=== PATIENT | female | born 1980 | race Two or more races ===

== ENCOUNTER 2017-09-09 19:11 | Emergency (ER) | payer OTHER ==
[~2017-09-09] VITALS: Ht 170.2 cm; Wt 59.0 kg
[~2017-09-09 19:11] MED LIST: KETO10TA2 PO
[2017-09-10] MEDS ORDERED: KETO10TA2 PO (02:35)
== END 2017-09-10 02:31 | disposition home or self-care (01) ==
LOC: ER 19:11
DX: N83.292 Other ovarian cyst, left side (principal); D25.9 Leiomyoma of uterus, unspecified

== ENCOUNTER 2019-10-02 16:54 | Emergency (ER) | payer OTHER ==
[~2019-10-02] VITALS: Ht 165.1 cm; Wt 68.0 kg
== END 2019-10-02 21:41 | disposition home or self-care (01) ==
LOC: ER 16:54
DX: J11.1 Influenza due to unidentified influenza virus with other respiratory manifestations (principal); B96.0 Mycoplasma pneumoniae [M. pneumoniae] as the cause of diseases classified elsewhere

== ENCOUNTER 2021-02-13 10:43 | Emergency (ER) | payer OTHER ==
[~2021-02-13] VITALS: Ht 165.1 cm; Wt 64.9 kg
[2021-02-13] MEDS ORDERED: BUTALB-ACETAMI1 EACH PO (13:40)
== END 2021-02-13 13:53 | disposition home or self-care (01) ==
LOC: ER 10:43
DX: G43.909 Migraine, unspecified, not intractable, without status migrainosus (principal)

== ENCOUNTER 2025-01-15 07:22 | Inpatient (IN) | payer OTHER ==
[~2025-01-15] VITALS: Ht 167.6 cm; Wt 69.4 kg
[~2025-01-15 07:22] MED LIST changes: +BUTALB-ACETAMI1 EACH PO
--- NOTE | 2025-01-15 07:35 | NUR ---
PACIENTE SE PRESENTA A ER CON QUEJA PRINCIPAL DE DOLOR EN REGION LUMBAR BAJA QUE IRRADIA HACIA LA PIERNA DERECHA DESDE HACE APROX 3 MARTINEZ. REFIERE QUE EL DOLOR VIVAR SIDO PERSISTENTE, NO VIVAR FILIPE A PESAR DE MICHELLE ANALGESICOS. REFIERE ADEMAS, QUE DESDE HOY VIVAR COMENZADO A EXPERIMENTAR MOLESTIA AL ORINAS. NIEGA FIEBRE, TRAUMA RECIENTE O CAIDAS.
--- NOTE | 2025-01-15 09:27 | NUR ---
SE EJECUTA ORDEN MEDICA EN LR TOTALIDAD
[2025-01-15 09:45] LABS: BASO % 1.5 % (0.1-1.2); EOS # 0.12 (0.04-0.54); LYMPH # 1.16 (1.18-3.74); LYMPH % 19.5 % (19.3-53.1); MEAN CORPUSCULAR HEMOGLOBIN 15.7 pg (25.6-32.2); MONO # 0.37 (0.24-0.82); MONO % 6.2 % (4.7-12.5); NEUT # 4.21 (1.56-6.13); NEUT % 70.6 % (34.0-71.1); PLATELET COUNT 384 K/uL (163-369); RED BLOOD COUNT 4.26 M/uL (3.93-5.22)
[2025-01-15 09:48] LABS: HEMATOCRIT 25.3 % (34.1-44.9); HEMOGLOBIN 6.7 g/dL (11.2-15.7)
[2025-01-15 10:08] LABS: PH,URINE 5.5 (5.0-8.0); URINE APPEARANCE Cloudy; URINE BILIRRUBIN Negative (NEGATIVE); URINE BLOOD Negative; URINE COLOR Yellow; URINE GLUCOSE Negative (NEGATIVE); URINE KETONE Trace (NEGATIVE); URINE LEUKOCYTE Moderate; URINE NITRATE Positive; URINE PROTEIN Negative (NEGATIVE)
[2025-01-15 10:11] LABS: URINE EPITHELIAL CELLS 115.7 uL (0.0-38.8); URINE RBC 4.5 uL (0.0-20.8); URINE WBC 267.4 uL (0.0-23.2)
[2025-01-15 10:18] LABS: ALBUMIN 4.4 gm/dL (3.4-5.0); BILIRUBIN TOTAL 1.26 mg/dL (0.3-1.2); CALCIUM 9.1 mg/dL (8.5-10.1); CREATININE SERUM 0.67 mg/dL (0.55-1.02); GFR 95.61; GLOBULINA 3.3 G/DL (2.4-3.5); POTASSIUM 5.21 mEq/L (3.5-5.1); TOTAL PROTEIN 7.7 gm/dL (6.4-8.2)
[2025-01-15 12:09] LABS: URINE CAST 0.14 uL (0.0-1.40)
[2025-01-15] MEDS ORDERED: ESTROGENS, CONJUGATED 25 MG VIAL IM ONE (16:45)
--- NOTE | 2025-01-15 18:30 | NUR ---
SE CORROBORA CON ORDEN DE PREMARIN 25MG, EL MISMO INDICA ESPERAR PARA LA ADMINISTRACION DEL MISMO DEBIDO QUE CONSULTARA A PACIENTE Y ANADIRA MAS ORDENES. AL MOMENTO DE SER ADMITIDO EL PACIENTE INDICA QUE NO VE NECESARIA LA ADMINISTRACION DE DICHO MEDICAMENTO POR LO CUAL SE PROCEDE A CANCELAR ORDEN MEDICA.
[2025-01-15] MEDS ORDERED: CEFTRIAXONE SODIUM 1,000 MG VIAL IV SCH (19:10)
[2025-01-15] MEDS ORDERED: 0.9 % SODIUM CHLORIDE 1,000 ML IV SCH (19:15)
[2025-01-15] MEDS ORDERED: ACETAMINOPHEN 325 MG TABLET PO PRN (19:15)
[2025-01-15] MEDS ORDERED: MORPHINE SULFATE 2 MG/ML CARTRIDGE IV PRN (19:30)
[2025-01-15] MEDS ORDERED: CEFTRIAXONE SODIUM 2,000 MG VIAL ONE (21:43)
[2025-01-15 22:43] LABS: INR 1.04; PARTIAL THROMBOPLASTIN TIME 23.7 SECONDS (22.0-34.0); PROTHROMBIN TIME 11.3 SECONDS (9.0-11.5)
[2025-01-15 22:48] LABS: ALBUMIN 4.5 gm/dL (3.4-5.0); BILIRUBIN TOTAL 1.23 mg/dL (0.3-1.2); CALCIUM 8.9 mg/dL (8.5-10.1); CREATININE SERUM 0.65 mg/dL (0.55-1.02); GFR 99.02; GLOBULINA 3.6 G/DL (2.4-3.5); POTASSIUM 3.98 mEq/L (3.5-5.1); TOTAL PROTEIN 8.1 gm/dL (6.4-8.2)
[2025-01-15 23:27] VITALS: BP 100/59; O2SAT 97
[2025-01-16 02:24] VITALS: BP 96/61; O2SAT 99
[2025-01-16 08:23] VITALS: BP 90/57; O2SAT 98
[2025-01-16] MEDS ORDERED: FF) NORGESTREL-ETHINYL ESTRADIOL TAB PO SCH (12:58)
[2025-01-16 16:06] VITALS: BP 97/55
[2025-01-16] MEDS ORDERED: CEFTRIAXONE SODIUM 2,000 MG VIAL IV SCH (17:00)
[2025-01-17 01:10] VITALS: BP 102/70; O2SAT 97
[2025-01-17 07:50] VITALS: BP 113/75
[2025-01-17 11:12] LABS: EOS # 0.43 (0.04-0.54); EOS % 6.3 % (0.7-7.0); HEMATOCRIT 36.1 % (34.1-44.9); HEMOGLOBIN 10.7 g/dL (11.2-15.7); LYMPH # 1.26 (1.18-3.74); LYMPH % 18.4 % (19.3-53.1); MEAN CORPUSCULAR HEMOGLOBIN 20.3 pg (25.6-32.2); MONO # 0.45 (0.24-0.82); MONO % 6.6 % (4.7-12.5); NEUT # 4.63 (1.56-6.13); NEUT % 67.4 % (34.0-71.1); PLATELET COUNT 287 K/uL (163-369); RED BLOOD COUNT 5.28 M/uL (3.93-5.22)
[2025-01-17 11:15] LABS: RED CELL DISTRIBUTION WIDTH 27.6 % (11.6-14.4)
[2025-01-17] MEDS ORDERED: LACTOBACILLUS ACIDOPHILUS 1 CAP CAP PO SCH (17:00)
[2025-01-17 17:55] LABS: ALBUMIN 3.9 gm/dL (3.4-5.0); BILIRUBIN TOTAL 1.92 mg/dL (0.3-1.2); CALCIUM 8.8 mg/dL (8.5-10.1); CREATININE SERUM 0.55 mg/dL (0.55-1.02); GFR 120.07; GLOBULINA 3.2 G/DL (2.4-3.5); POTASSIUM 4.35 mEq/L (3.5-5.1); TOTAL PROTEIN 7.1 gm/dL (6.4-8.2)
[2025-01-18 00:31] VITALS: BP 107/66
[2025-01-18 04:59] LABS: HEMATOCRIT 34.2 % (34.1-44.9); HEMOGLOBIN 10.2 g/dL (11.2-15.7); RED BLOOD COUNT 5.06 M/uL (3.93-5.22)
[2025-01-18 05:00] LABS: LYMPH % 22.4 % (19.3-53.1); MEAN CORPUSCULAR HEMOGLOBIN 20.2 pg (25.6-32.2); MONO % 7.7 % (4.7-12.5); NEUT % 60.4 % (34.0-71.1); PLATELET COUNT 287 K/uL (163-369); RED CELL DISTRIBUTION WIDTH 28.1 % (11.6-14.4)
[2025-01-18 05:01] LABS: BASO % 1.4 % (0.1-1.2); EOS # 0.61 (0.04-0.54); LYMPH # 1.71 (1.18-3.74); MONO # 0.59 (0.24-0.82); NEUT # 4.61 (1.56-6.13)
[2025-01-18 08:14] VITALS: BP 115/68
[2025-01-18] MEDS ORDERED: FAMOtidine 20 MG TABLET PO SCH (09:00)
[2025-01-18 16:00] VITALS: BP 101/60; O2SAT 98
[2025-01-19 00:39] VITALS: BP 102/68; O2SAT 98
[2025-01-19 07:07] LABS: ALBUMIN 3.6 gm/dL (3.4-5.0); BILIRUBIN TOTAL 1.53 mg/dL (0.3-1.2); CALCIUM 8.1 mg/dL (8.5-10.1); CREATININE SERUM 0.65 mg/dL (0.55-1.02); GFR 99.02; POTASSIUM 4.59 mEq/L (3.5-5.1); TOTAL PROTEIN 6.6 gm/dL (6.4-8.2)
[2025-01-19 08:00] VITALS: BP 122/72; O2SAT 98
== END 2025-01-19 13:31 | disposition home or self-care (01) | DRG 812 ==
LOC: ER 07:30 → MEDI 20:00
PROVIDERS: General Practice; ADMIT Internal Medicine; ATTEND Internal Medicine
PROC: 30233N1 Transfusion of Nonautologous Red Blood Cells into Peripheral Vein, Percutaneous Approach (ICD-10-PCS; principal; 2025-01-15)
PROC: BU4CZZZ Ultrasonography of Uterus and Ovaries (ICD-10-PCS; 2025-01-15)
PROC: BT4JZZZ Ultrasonography of Kidneys and Bladder (ICD-10-PCS; 2025-01-15)
DX: D64.9 Anemia, unspecified (principal); N39.0 Urinary tract infection, site not specified; N93.8 Other specified abnormal uterine and vaginal bleeding

== ENCOUNTER 2025-06-06 08:45 | Inpatient (IN) | payer OTHER ==
[~2025-06-06] VITALS: Ht 167.6 cm; Wt 72.6 kg
[2025-06-06 09:40] VITALS: BP 106/73
[2025-06-06 10:29] LABS: URINE APPEARANCE Cloudy; URINE BILIRRUBIN Negative (NEGATIVE); URINE BLOOD Moderate; URINE COLOR Yellow; URINE GLUCOSE Negative (NEGATIVE); URINE KETONE Negative (NEGATIVE); URINE LEUKOCYTE Negative; URINE NITRATE Negative; URINE PROTEIN Negative (NEGATIVE); URINE UROBILINOGEN 0.2 E.U./dl
[2025-06-06 10:30] LABS: BASO % 1.5 % (0.1-1.2); EOS # 0.37 (0.04-0.54); EOS % 6.3 % (0.7-7.0); LYMPH # 1.43 (1.18-3.74); LYMPH % 24.3 % (19.3-53.1); MEAN PLATELET VOLUME 11.80 fl (9.4-12.4); MONO # 0.35 (0.24-0.82); MONO % 5.9 % (4.7-12.5); NEUT # 3.63 (1.56-6.13); NEUT % 61.7 % (34.0-71.1)
[2025-06-06 10:32] LABS: RED CELL DISTRIBUTION WIDTH 22.4 % (11.6-14.4)
[2025-06-06 10:35] LABS: URINE BACTERIA 4138.5 uL (0.0-1933); URINE EPITHELIAL CELLS 44.5 uL (0.0-38.8); URINE RBC 23.0 uL (0.0-20.8); URINE WBC 7.8 uL (0.0-23.2)
[2025-06-06 10:36] LABS: URINE CAST 0.00 uL (0.0-1.40)
[2025-06-06 10:58] LABS: INR 0.99
[2025-06-06 11:28] LABS: ALT/SGPT 30.0 U/L (12-78); AST/SGOT 15.0 U/L (15-37); BILIRUBIN TOTAL 0.9 mg/dL (0.3-1.2); BUN CREA RATIO 23.0 (7.0-25.0); CREATININE SERUM 0.78 mg/dL (0.55-1.02); GFR 79.87; GLOBULINA 3.3 G/DL (2.4-3.5); GLUCOSE FASTING 82.0 mg/dL (65-100); OSMOLALITY SERUM 282.0 MOSM/KG (275-295)
[2025-06-09] MEDS ORDERED: METRONIDAZOLE/SODIUM CHLORIDE 500 MG/100 ML PIGGYBACK IV ONE ×2 (13:55→17:45)
[2025-06-09] MEDS ORDERED: CEFOXITIN SODIUM 2,000 MG VIAL IV ONE ×2 (13:56→17:45)
[2025-06-09] MEDS ORDERED: POVIDONE-IODINE 118 ML BOTT TOP ONE ×2 (16:24→17:45)
[2025-06-09] MEDS ORDERED: HEMOSTATIC MATRIX 1 KIT KIT TOP ONE (18:18)
[2025-06-09] MEDS ORDERED: SURGIFLO APPLICATOR 1 EACH APPL TOP ONE (18:18)
[2025-06-09] MEDS ORDERED: RINGERS SOLUTION,LACTATED 1,000 ML IV SCH (19:15)
[2025-06-09] MEDS ORDERED: ONDANSETRON HCL 2 MG/ML VIAL IV PRN (19:15)
[2025-06-09] MEDS ORDERED: KETOROLAC TROMETHAMINE 30 MG VIAL IV PRN (19:15)
[2025-06-09] MEDS ORDERED: MORPHINE SULFATE 4 MG/ML CARTRIDGE IV PRN (19:15)
[2025-06-09] MEDS ORDERED: FAMOTIDINE/PF 20 MG/2 ML VIAL IV SCH (21:00)
[2025-06-09] MEDS ORDERED: SIMETHICONE 125 MG CAPSULE PO SCH (21:00)
[2025-06-09] MEDS ORDERED: FAMOTIDINE/PF 20 MG/2 ML VIAL ONE (21:53)
[2025-06-09 22:28] VITALS: BP 110/71
[2025-06-10 02:10] VITALS: BP 104/66
[2025-06-10 02:17] LABS: BASO % 0.5 % (0.1-1.2); EOS # 0.00 (0.04-0.54); EOS % 0.0 % (0.7-7.0); LYMPH # 0.71 (1.18-3.74); LYMPH % 6.6 % (19.3-53.1); MEAN PLATELET VOLUME 11.80 fl (9.4-12.4); MONO # 0.46 (0.24-0.82); MONO % 4.3 % (4.7-12.5); NEUT # 9.45 (1.56-6.13); NEUT % 88.2 % (34.0-71.1); RED CELL DISTRIBUTION WIDTH 21.9 % (11.6-14.4)
[2025-06-10] MEDS ORDERED: ACETAMINOPHEN WITH CODEINE 1 UDTAB TABLET PO PRN (06:00)
[2025-06-10 06:23] VITALS: BP 102/63
[2025-06-10 08:56] VITALS: BP 98/64
[2025-06-10] MEDS ORDERED: NAPROXEN 500 MG TABLET PO PRN (09:00)
[2025-06-10] MEDS ORDERED: ACETAMINOPHEN-1 EAC2 PO (09:15)
[2025-06-10] MEDS ORDERED: NAPROXEN500 MG PO (09:15)
== END 2025-06-10 11:53 | disposition home or self-care (01) | DRG 743 ==
LOC: OB/GYN 06-09 08:45 → O/R 06-09 13:00 → OB/GYN 06-09 19:30
PROVIDERS: ADMIT Obstetrics & Gynecology; ATTEND Obstetrics & Gynecology
PROC: 0UT7FZZ Resection of Bilateral Fallopian Tubes, Via Natural or Artificial Opening With Percutaneous Endoscopic Assistance (ICD-10-PCS; 2025-06-09)
PROC: 0TJB8ZZ Inspection of Bladder, Via Natural or Artificial Opening Endoscopic (ICD-10-PCS; 2025-06-09)
PROC: 0UT9FZZ Resection of Uterus, Via Natural or Artificial Opening With Percutaneous Endoscopic Assistance (ICD-10-PCS; principal; 2025-06-09 19:30)
DX: D25.1 Intramural leiomyoma of uterus (principal); D25.0 Submucous leiomyoma of uterus; N72 Inflammatory disease of cervix uteri; N92.1 Excessive and frequent menstruation with irregular cycle; R10.20 Pelvic and perineal pain unspecified side; N81.11 Cystocele, midline